=== PATIENT | female | born 1970 | race Caucasian/White ===

== ENCOUNTER → 2016-12-15 | Outpatient (RCR) | payer OTHER | END | disposition home or self-care (01) | LOC: WSPT | DX: I97.2 Postmastectomy lymphedema syndrome (principal) ==

== ENCOUNTER 2017-04-13 10:00 | Outpatient (RCR) | payer OTHER | END 2017-04-23 | disposition home or self-care (01) | LOC: WSPT | DX: I89.0 Lymphedema, not elsewhere classified (principal); Z90.10 Acquired absence of unspecified breast and nipple ==

== ENCOUNTER 2017-06-30 08:00 | Outpatient (RCR) | payer OTHER | END 2017-08-13 | disposition still patient (30) | LOC: WSPT | DX: I97.2 Postmastectomy lymphedema syndrome (principal); Z90.10 Acquired absence of unspecified breast and nipple ==

== ENCOUNTER 2017-07-31 12:30 | Outpatient (RCR) | payer OTHER | END 2017-09-05 | LOC: WSPT | DX: M25.561 Pain in right knee (principal); G89.29 Other chronic pain; Z87.39 Personal history of other diseases of the musculoskeletal system and connective tissue | CPT/HCPCS: G0283-GP ==

== ENCOUNTER 2018-07-06 09:00 | Outpatient (RCR) | payer OTHER | END 2018-07-25 16:36 | disposition home or self-care (01) | LOC: WSPT 09:00 | DX: M25.562 Pain in left knee (principal) | CPT/HCPCS: G0283-GP ==

== ENCOUNTER → 2019-10-23 | Outpatient (CLI) | payer OTHER | LOC: COL.RAD 11:52 | DX: M75.111 Incomplete rotator cuff tear or rupture of right shoulder, not specified as traumatic (principal) ==